=== PATIENT | male | born 1955 | race Caucasian/White ===

== ENCOUNTER → 2018-10-15 | Outpatient (CLI) | payer OTHER ==
--- NOTE | 2018-10-15 14:01 | RAD ---
EXAM DESCRIPTION: Knee,Right Complete CLINICAL HISTORY: 63 years Male, PAIN IN RIGHT KNEE COMPARISON: None. TECHNIQUE: 4 views of the right knee. IMPRESSION: No acute displaced fracture. No dislocation. Severe narrowing of the medial weightbearing joint space with mild underlying subchondral sclerosis along the tibial plateau. Small marginal osteophytes extend off the femoral condyles and tibial plateau. The tibial plateau is intact. Mild patellofemoral arthrosis. Probable small knee joint effusion. Lateral patellar tilt. Mild September 01 edema. No radiopaque foreign body. Electronically signed by: Harish Almaraz MD 10/15/2018 1:59 PM CDT
--- NOTE | 2018-10-15 14:04 | RAD ---
EXAM DESCRIPTION: Pelvis CLINICAL HISTORY: PAIN IN RIGHT HIP COMPARISON: None. IMPRESSION: AP supine view of the pelvis shows no acute fracture, focal bone destruction, or joint dislocation. No advanced arthrosis. Electronically signed by: Jacques Galloway MD 10/15/2018 2:02 PM CDT
== END ==
LOC: RAD 09:27
PROVIDERS: ATTEND Orthopaedic Surgery
DX: M22.2X1 Patellofemoral disorders, right knee (principal); M25.861 Other specified joint disorders, right knee; M25.551 Pain in right hip; R60.0 Localized edema

== ENCOUNTER → 2019-01-25 | Outpatient (CLI) | payer OTHER ==
--- NOTE | 2019-01-25 13:34 | RAD ---
EXAM DESCRIPTION: Chest,2 Views CLINICAL HISTORY: PRESURGICAL CLEARANCE COMPARISON: None FINDINGS: 3 views of the chest. No consolidation, effusion or pneumothorax is present. Usual physiologic wedging of the midthoracic vertebral bodies. Heart size is normal. Flattening of the hemidiaphragms can be seen with good depth of inspiration or COPD. IMPRESSION: Good depth of inspiration versus COPD. No acute radiographic abnormality. Electronically signed by: Collins French MD 01/25/2019 1:32 PM [facility]
== END ==
LOC: LAB.O 09:20
PROVIDERS: ATTEND Nurse Practitioner Family
DX: Z01.810 Encounter for preprocedural cardiovascular examination (principal); R91.8 Other nonspecific abnormal finding of lung field

== ENCOUNTER 2019-02-23 05:39 | Day surgery (SDC) | payer OTHER ==
[2019-02-23] MEDS ORDERED: SODIUM CHL 0.9% 100ML MINI-BAG 100 ML IVPB ONE (08:23)
[2019-02-23] MEDS ORDERED: LACTATED RINGERS 1,000 ML ONE (08:23)
[2019-02-23] MEDS ORDERED: SODIUM CHLORIDE 0.9% 250ML 250 ML ONE (08:23)
[2019-02-23] MEDS ORDERED: ceFAZolin SODIUM 1 GM VIAL ONE (08:24)
[2019-02-23] MEDS ORDERED: VANCOMYCIN HCL INJ 1,000 MG VIAL IVPB ONE (08:24)
[2019-02-23] MEDS ORDERED: TRANEXAMIC ACID 1,000 MG/10 ML VIAL ONE ×2 (08:24→08:25)
[2019-02-23] MEDS ORDERED: SODIUM CHLORIDE 0.9% 100ML 100 ML IVPB ONE (08:31)
[2019-02-23 10:45] VITALS: BP 131/83; TEMP 98.3; O2SAT 97
== END 2019-02-23 10:00 | disposition home or self-care (01) ==
LOC: AMB 05:39
PROVIDERS: ATTEND Orthopaedic Surgery
DX: M17.11 Unilateral primary osteoarthritis, right knee (principal); Z53.9 Procedure and treatment not carried out, unspecified reason

== ENCOUNTER 2019-04-21 05:22 | Inpatient (IN) | payer OTHER ==
[2019-04-21] MEDS ORDERED: SODIUM CHL 0.9% 100ML MINI-BAG 100 ML IVPB ONE (05:43)
[2019-04-21] MEDS ORDERED: LACTATED RINGERS 1,000 ML ONE (05:43)
[2019-04-21] MEDS ORDERED: TRANEXAMIC ACID 1,000 MG/10 ML VIAL ONE ×2 (05:45→05:47)
[2019-04-21] MEDS ORDERED: ceFAZolin SODIUM 1 GM VIAL ONE ×3 (05:45→19:26)
[2019-04-21] MEDS ORDERED: VANCOMYCIN HCL INJ 1,000 MG VIAL IVPB ONE ×4 (05:45→19:25)
[2019-04-21] MEDS ORDERED: SODIUM CHLORIDE 0.9% 100ML 100 ML IVPB ONE (05:46)
[2019-04-21] MEDS ORDERED: SODIUM CHLORIDE 0.9% 250ML 250 ML ONE ×3 (05:48→19:24)
[2019-04-21] MEDS ORDERED: HYDROmorphone HCL INJ 2 MG/ML VIAL ONE (06:25)
[2019-04-21] MEDS ORDERED: TRANEXAMIC ACID 1,000 MG/10 ML VIAL IV ONE (06:25)
[2019-04-21] MEDS ORDERED: MIDAZOLAM INJ 5 MG/5 ML VIAL ONE (06:25)
[2019-04-21] MEDS ORDERED: LACTATED RINGERS 1,000 ML IVS ONE (06:25)
[2019-04-21] MEDS ORDERED: ACETAMINOPHEN IV 1000MG 100 ML ONE (06:25)
[2019-04-21] MEDS ORDERED: KETAMINE HCL 100 MG/ML VIAL ONE (06:25)
[2019-04-21] MEDS ORDERED: DEX 5% W/NACL 0.45% 1000ML 1,000 ML IVS PRN (06:57)
[2019-04-21] MEDS ORDERED: BISACODYL SUPPOSITORY 10 MG PR PRN (06:57)
[2019-04-21] MEDS ORDERED: ALUMINUM & MAGNESIUM HYDROXIDE 30 ML UD PO PRN (06:57)
[2019-04-21] MEDS ORDERED: MORPHINE SULFATE INJ 10 MG/ML VIAL IM PRN (06:57)
[2019-04-21] MEDS ORDERED: ZOLPIDEM TARTRATE 5 MG TAB PO PRN (06:57)
[2019-04-21] MEDS ORDERED: TRANEXAMIC ACID INJ 1,000 MG in SODIUM CHLORIDE 0.9% 100ML 100 ML IVPB ONE (06:57)
[2019-04-21] MEDS ORDERED: SODIUM CHLORIDE 0.9% (FLUSH) 10 ML SYG IV PRN (06:57)
[2019-04-21] MEDS ORDERED: NALOXONE HCL INJ 0.4 MG/ML VIAL IV PRN (06:57)
[2019-04-21] MEDS ORDERED: BENZOCAINE-MENTH LOZ (CEPACOL) 1 EA LOZ MT PRN (06:57)
[2019-04-21] MEDS ORDERED: MAGNESIUM HYDROXIDE 30 ML UD PO PRN (06:57)
[2019-04-21] MEDS ORDERED: PROMETHAZINE HCL INJ 12.5 MG in SODIUM CHLORIDE 0.9% 50ML 50 ML IVPB PRN (06:57)
[2019-04-21] MEDS ORDERED: ACETAMINOPHEN 500 MG TAB PO PRN (06:57)
[2019-04-21] MEDS ORDERED: traMADol HCL 50 MG TAB PO PRN (06:57)
[2019-04-21] MEDS ORDERED: TEMAZEPAM 15 MG CAP PO PRN (06:57)
[2019-04-21] MEDS ORDERED: ACETAMINOPHEN 325 MG TAB PO PRN (06:57)
[2019-04-21] MEDS ORDERED: PROMETHAZINE HCL INJ 25 MG in SODIUM CHLORIDE 0.9% 50ML 50 ML IVPB PRN (06:57)
[2019-04-21] MEDS ORDERED: ONDANSETRON INJ 4 MG/2 ML VIAL IV PRN (06:57)
[2019-04-21] MEDS ORDERED: HYDROcodone 5MG/APAP 325MG 1 EA TAB PO PRN (06:57)
[2019-04-21] MEDS ORDERED: MORPHINE SULFATE INJ 10 MG/ML VIAL IV PRN (06:57)
[2019-04-21] MEDS ORDERED: SODIUM CHLORIDE 0.9% 50 ML VIAL ONE (07:00)
[2019-04-21] MEDS ORDERED: raNITIdine HCL INJ 25 MG/ML VIAL ONE (07:00)
[2019-04-21] MEDS ORDERED: PROPOFOL 200 MG/20 ML VIAL IV ONE (07:00)
[2019-04-21] MEDS ORDERED: MORPHINE PCA 1 MG/ML 100 ML BAG IVPB SCH (07:00)
[2019-04-21] MEDS ORDERED: MAGNESIUM SULFATE INJ 1 GM/2 ML VIAL ONE (07:00)
[2019-04-21] MEDS ORDERED: EPINEPHrine HCL AMP 1 MG/ML AMP ONE (07:00)
[2019-04-21] MEDS ORDERED: PHENYLEPHRINE INJ 1ML 10 MG/ML VIAL ONE (07:00)
[2019-04-21] MEDS ORDERED: IV SET AND CAP CHANGE INJ INJ SCH (07:00)
[2019-04-21] MEDS ORDERED: DEXAMETHASONE INJ 10 MG/ML VIAL ONE (07:00)
[2019-04-21] MEDS: ceFAZolin SODIUM 1 GM VIAL ONE ×3 (07:54→09:04)
[2019-04-21] MEDS: VANCOMYCIN HCL INJ 1,000 MG VIAL IVPB ONE ×2 (07:55→09:04)
[2019-04-21] MEDS: BUPIVACAINE LIPOSOME 13.3 MG/ML VIAL INJ ONE ×2 (07:55→08:32)
[2019-04-21] MEDS: BUPIVACAINE 0.5% 30 ML VIAL INJ ONE ×2 (07:55→08:32)
[2019-04-21] MEDS ORDERED: ELECTROLYTE-A 1,000 ML IVS ONE (08:36)
--- NOTE | 2019-04-21 11:34 | OP ---
DATE OF PROCEDURE: 04/21/19 PREOPERATIVE DIAGNOSIS: 1. Osteoarthritis of the right knee. POSTOPERATIVE DIAGNOSIS: 1. Osteoarthritis of the right knee. PROCEDURE: 1. Total knee arthroplasty. SURGEON: David Kenny MD. FRUIT SHIPPER: Domenic Arora CST, SA-C. ANESTHESIA: General anesthesia. COMPLICATIONS: None. FINDINGS: Severe arthritis of the knee. INDICATION: Deandre has a history of severe knee pain. He has had difficulty with difficulty activities because of worsening of his discomfort. We discussed options and after discussing the risks, benefits and alternatives to operative therapy, the patient has given informed consent. PROCEDURE: The patient was brought to the Operating Room and placed in supine position. General anesthesia was induced and the patient's leg was sterilely prepped and draped. Following prepping and draping, the distal femur was exposed and using an intramedullary guide, the distal femoral cut was made. The appropriate sized cutting block was measured, pinned into place, and the anterior, posterior, and chamfer cuts were made. The ACL was transected and the tibia was subluxed. Both the medial and lateral menisci were removed. An intramedullary guide was used to make the proximal tibial cut. The appropriate sized base plate was placed and a trial polyethylene was placed. The trial femur was placed, the knee was reduced, and the knee was taken through a range of motion. The knee was stable in anterior, posterior, varus and valgus stress. The patella tracked anatomically without evidence of subluxation or dislocation. After trialing, the trial components were removed and the bony surfaces were thoroughly irrigated with saline. Following irrigation, the surfaces were dried and the final components were cemented into place. The excess cement was removed and the remaining cement was allowed to cure. The knee was again taken through a range of motion to confirm stability. The wound was then irrigated with saline and closure was performed using PDS to approximate the arthrotomy followed by closure of the subcutaneous tissues with a combination of running and interrupted Monocryl sutures. Sterile dressing was placed. The patient was awoken from anesthesia and taken to Recovery. COMPONENTS: [place] [employer] knee, size 6 femur, size 6 tibia, 9 mm insert. POSTOPERATIVE PLAN: The patient will be weight-bearing as tolerated on postoperative day 1. #[id number] MTDD
[2019-04-21] MEDS: MAGNESIUM OXIDE 400 MG TAB PO SCH (12:57)
[2019-04-21] MEDS: CELECOXIB 100 MG CAP PO SCH ×2 (12:57→17:22)
--- NOTE | 2019-04-21 14:41 | RAD ---
Right knee 2 views INDICATION: Total knee arthroplasty IMPRESSION: There is lucency possibly small fracture along the lateral margin lateral femoral condyle on the AP film. Recommend follow-up radiographs. Status post total knee arthroplasty. Mild patellofemoral osteophyte formation. Electronically signed by: George Gifford MD 04/21/2019 2:39 PM [facility]
[2019-04-21] MEDS ORDERED: MECLIZINE HCL 12.5 MG TAB PO PRN (15:40)
--- NOTE | 2019-04-21 17:15 | CONS ---
SUPERVISING PHYSICIAN: Austin Mckenzie MD CHIEF COMPLAINT: Right knee pain. HISTORY OF PRESENT ILLNESS: This is a 63 year-old male patient who has a significant history of osteoarthritis of his bilateral knees with bilateral knee pain. He has had his left knee replaced and he has tried conservative measures and failed to gain any relief with his pain and he requested Dr. David Kenny, orthopedic surgeon, for operative intervention and he was admitted to the hospital today for a right total knee arthroplasty. There were no problems intraoperatively. Postoperatively, he initially became fairly diaphoretic with a systolic blood pressure in the 80s. He received a bolus of fluid and cardiac enzymes were run. There were no EKG changes and his cardiac enzymes were negative. Since that time, he is awake and alert. He has had no more problems with diaphoresis. There were never any complaints of chest pain, nausea or vomiting. PAST MEDICAL HISTORY: 1. Hypertension. 2. Hyperlipidemia. 3. Atrial fibrillation. 4. Benign positional vertigo. PAST SURGICAL HISTORY: 1. Left knee replacement. CURRENT MEDICATIONS: 1. Mobic. 2. Xarelto. 3. Lisinopril Hydrochlorothiazide. 4. Metoprol. tartrate. 5. Crestor. ALLERGIES: Penicillin. SOCIAL HISTORY: He lives in [place], he is . He does not smoke tobacco but he does dip snuff. He drinks beer occasionally and he denies any illicit drug use. REVIEW OF SYSTEMS: Negative except as per history of present illness. PHYSICAL EXAMINATION: VITAL SIGNS: Temperature 96.7, heart rate 100, blood pressure 104/56, respirations 16, oxygen saturation 93% on room air. GENERAL: This is a 63 year-old male patient lying in his hospital bed. He is in no acute distress. HEENT: Normocephalic and atraumatic. Pupils are equal and reactive. Oropharynx is clear. NECK: Supple without mass. CHEST: Essentially clear to auscultation bilaterally. HEART: Regular rate and rhythm. ABDOMEN: Soft, nondistended, non-tender. Bowel sounds are positive. EXTREMITIES: His right leg is in the CPM machine. He has an Hansel bandage that is try and intact. His bilateral pedal pulses are palpable +2. NEUROLOGIC: He is awake, alert, and oriented x3. Cranial nerves II through XII are grossly intact as tested. LABORATORY: CBC is unremarkable. Electrolytes are basically within normal limits. Blood sugar is slightly high at 143. Cardiac enzymes are negative. Urinalysis is unremarkable. Urine drug screen is negative. X-rays are as per the history of present illness. IMPRESSION: 1. Osteoarthritis of the right knee status post right total knee arthroplasty performed by Dr. David Kenny, orthopedic surgeon, postoperative #0. 2. Hypertension. 3. Hyperlipidemia. 4. Chronic atrial fibrillation on Xarelto. 5. Benign positional vertigo. PLAN: We will continue present supportive care. Orthopedic issues will be per Dr. David Kenny, orthopedic surgeon. He will begin physical therapy for strengthening and conditioning tomorrow. I have restarted his home medications with the exception of his Mobic and his Xarelto. I have ordered Meclizine for his vertigo. I have encouraged good pulmonary hygiene. We will continue to monitor him closely and follow as needed. #[id number] [facility]
[2019-04-21] MEDS ORDERED: SODIUM CHL 0.9% 50ML MIN-BAG+ 50 ML IVPB ONE ×2 (17:16→19:25)
[2019-04-21] MEDS: ceFAZolin SODIUM 2 GM in SODIUM CHL 0.9% 50ML MIN-BAG+ 50 ML IVPB SCH (17:22)
[2019-04-21] MEDS: VANCOMYCIN HCL INJ 1,000 MG in SODIUM CHLORIDE 0.9% 250ML 250 ML IVPB SCH (17:53)
[2019-04-21] MEDS ORDERED: ENOXAPARIN SODIUM 30 MG/0.3 ML SYG SUBCU ONE (19:25)
[2019-04-21] MEDS: METOPROLOL TARTRATE 50 MG TAB PO SCH (20:14)
[2019-04-21] MEDS: DOCUSATE CALCIUM 240 MG CAP PO SCH (20:15)
--- NOTE | 2019-04-21 22:28 | RAD ---
EXAM DESCRIPTION: Fluoroscopy Up to 1Hr CLINICAL HISTORY: 63 years Male, RIGHT TKA COMPARISON: None. IMPRESSION: Multiple intraoperative fluoroscopic images saved for the benefit of the surgeon. Total right knee arthroplasty. Please see procedure report for full details. Fluoroscopy time: 6.2 seconds Fluoroscopic images: 1 Total dose: 1.02 mGy Electronically signed by: Harish Almaraz MD 04/21/2019 10:27 PM [facility]
[2019-04-21] MEDS: ENOXAPARIN SODIUM 30 MG/0.3 ML SYG SUBCU SCH (22:55)
[2019-04-22] MEDS: ceFAZolin SODIUM 2 GM in SODIUM CHL 0.9% 50ML MIN-BAG+ 50 ML IVPB SCH ×2 (00:21→08:25)
[2019-04-22] MEDS: VANCOMYCIN HCL INJ 1,000 MG in SODIUM CHLORIDE 0.9% 250ML 250 ML IVPB SCH (05:37)
[2019-04-22] MEDS ORDERED: SODIUM CHL 0.9% 50ML MIN-BAG+ 50 ML IVPB ONE (08:00)
[2019-04-22] MEDS ORDERED: ceFAZolin SODIUM 1 GM VIAL ONE (08:03)
--- NOTE | 2019-04-22 08:18 | PN ---
DATE: 04/22/19 SUBJECTIVE: Deandre is doing really well and says his pain is well controlled. OBJECTIVE: Afebrile. Vital signs stable. Dressing is clean, dry and intact. ASSESSMENT: Status post total knee arthroplasty. PLAN: He will begin weightbearing as tolerated today. #[id number] MTDD
[2019-04-22] MEDS: hydroCHLOROthiazide 25 MG TAB PO SCH (08:19)
[2019-04-22] MEDS: MAGNESIUM OXIDE 400 MG TAB PO SCH (08:19)
[2019-04-22] MEDS: METOPROLOL TARTRATE 50 MG TAB PO SCH ×2 (08:19→20:37)
[2019-04-22] MEDS: HYDROcodone 10MG/APAP 325MG 1 EA TAB PO PRN ×2 (08:19→20:36)
[2019-04-22] MEDS: CELECOXIB 100 MG CAP PO SCH ×2 (08:19→17:15)
[2019-04-22] MEDS: CYCLOBENZAPRINE HCL 10 MG TAB PO PRN ×2 (08:20→17:15)
[2019-04-22] MEDS: LISINOPRIL 10 MG TAB PO SCH (08:20)
[2019-04-22] MEDS ORDERED: NON-FORMULARY MEDICATION 1 EA MIS (Lisinopril & Hydrochlorothiazi [Lisinopril/Hydrochlorot PO SCH (09:00)
[2019-04-22] MEDS ORDERED: NON-FORMULARY MEDICATION 1 EA MIS (Rosuvastatin Calcium [Crestor] 10 MG) PO SCH (09:00)
[2019-04-22] MEDS: ENOXAPARIN SODIUM 30 MG/0.3 ML SYG SUBCU SCH ×2 (12:18→23:01)
[2019-04-22] MEDS ORDERED: diphenhydrAMINE HCL 50 MG/ML VIAL IV PRN (16:38)
[2019-04-22] MEDS: DOCUSATE CALCIUM 240 MG CAP PO SCH (20:37)
[2019-04-22] MEDS ORDERED: SIMVASTATIN 20 MG TAB PO SCH (21:00)
[2019-04-23 02:47] VITALS: O2SAT 98
--- NOTE | 2019-04-23 07:54 | PN ---
SUPERVISING PHYSICIAN: Austin Mckenzie MD DATE: 04/22/19 SUBJECTIVE: The patient is lying in bed asleep. He awakens easily. He said his leg has been having a few spasms in it, but he is not in much pain. He denies any chest pain, shortness of breath, nausea or vomiting. OBJECTIVE: VITAL SIGNS: Temperature 98.1. Heart rate 85. Blood pressure 118/73. Respiratory rate 18. O2 saturation 98% on room air. RESPIRATORY: Essentially clear to auscultation bilaterally. CARDIAC: Regular rate and rhythm. GASTROINTESTINAL: Abdomen is soft, nondistended, nontender. Bowel sounds are positive. EXTREMITIES: Bilateral pedal pulses are palpable at +2. His right knee has a dressing that is dry and intact. NEUROLOGIC: Awake, alert and oriented times three. LABORATORY: Hemoglobin 12.1, hematocrit 36.8. All other labs and films have been reviewed via the EMR. ASSESSMENT: 1. Osteoarthritis of the right knee status post right total knee arthroplasty performed by Dr. David Kenny, orthopedic surgeon, postoperative #1. 2. Hypertension. 3. Hyperlipidemia. 4. Chronic atrial fibrillation on Xarelto. 5. Benign positional vertigo. PLAN: We will continue present supportive care. Orthopedic issues will be per Dr. David Kenny, orthopedic surgeon. He will continue with physical therapy for strengthening and conditioning. I have encouraged good pulmonary hygiene. Discharge planning is underway and he will use physical therapy from [facility]. Hopefully he will be discharged in the next 1 to 2 days. We will continue to monitor the patient closely and follow as needed. #[id number] [facility]
[2019-04-23] MEDS ORDERED: SODIUM CHLORIDE 0.9% (FLUSH) 10 ML SYG IV SCH (09:00)
[2019-04-23] MEDS: LISINOPRIL 10 MG TAB PO SCH (09:36)
[2019-04-23] MEDS: hydroCHLOROthiazide 25 MG TAB PO SCH (09:36)
[2019-04-23] MEDS: CYCLOBENZAPRINE HCL 10 MG TAB PO PRN (09:36)
[2019-04-23] MEDS: CELECOXIB 100 MG CAP PO SCH (09:36)
[2019-04-23] MEDS: METOPROLOL TARTRATE 50 MG TAB PO SCH (09:36)
[2019-04-23] MEDS: MAGNESIUM OXIDE 400 MG TAB PO SCH (09:36)
[2019-04-23] MEDS: HYDROcodone 10MG/APAP 325MG 1 EA TAB PO PRN (09:37)
[2019-04-23] MEDS: ENOXAPARIN SODIUM 30 MG/0.3 ML SYG SUBCU SCH (12:02)
[2019-04-23 17:11] VITALS: BP 121/72; TEMP 98
[2019-04-24] MEDS ORDERED: MAGNESIUM HYDROXIDE 30 ML UD PO ONE (21:00)
[2019-04-24] MEDS ORDERED: BISACODYL SUPPOSITORY 10 MG PR ONE (21:00)
--- NOTE | 2019-04-28 09:41 | DS ---
SUPERVISING PHYSICIAN: Austin Mckenzie MD DISCHARGE DIAGNOSIS: 1. Osteoarthritis of the right knee status post right total knee arthroplasty performed by Dr. David Kenny, orthopedic surgeon, postoperative #2. 2. Hypertension. 3. Hyperlipidemia. 4. Chronic atrial fibrillation on Xarelto. 5. Benign positional vertigo. HISTORY OF PRESENT ILLNESS: This is a 63 year-old male patient who was admitted to the hospital on the day of his procedure. He has had a long history of osteoarthritis of his bilateral knees. He has had his left knee replaced several years ago. He has tried conservative measures and failed to gain any relief with his right knee pain and he requested Dr. David Kenny, orthopedic surgeon, for operative intervention. He was admitted for the operative procedure and there were no problems intraoperatively. Postoperatively, he initially was diaphoretic, but after giving him some fluids and getting the pain under control, there were no further problems. A set of cardiac enzymes were run and were negative. There were no EKG changes. Since that time, he has had no issues. He has met his physical therapy goals. His orthopedic issues were addressed by Dr. Kenny. He is ready to be discharged home in stable condition. LABORATORY: Postoperative hemoglobin 12.1, hematocrit 36.8. Cardiac enzymes were all negative. Urine drug screen was negative. DISCHARGE PLAN: The patient will be discharged home in stable condition. He is to resume his previous diet. His activity will be as per physical therapy. He will go to the [facility] outpatient physical therapy department. He has a followup appointment with Dr. Kenny on 05/07/19 at 10:30 AM. He is on Xarelto routinely and he is to continue that for his anticoagulant therapy. He is to resume his previous dosage. He is to resume his previous medications. In addition to his routine medications, he will have Flexeril as well as some hydrocodone. He is to return to the hospital or followup with Dr. Kenny for any problems or complications. DISCHARGE MEDICATIONS: 1. Crestor. 2. Xarelto. 3. Lopressor. 4. Mobic. 5. Lisinopril/hydrochlorothiazide. 6. Cyclobenzaprine. 7. Hydrocodone. #[id number] MTDD
== END 2019-04-23 15:00 | disposition home or self-care (01) | DRG 470 ==
LOC: AMB 05:22 → MS 10:37
PROVIDERS: ADMIT Orthopaedic Surgery; ATTEND Nurse Practitioner Acute Care
PROC: 3E0T3BZ Introduction of Anesthetic Agent into Peripheral Nerves and Plexi, Percutaneous Approach (ICD-10-PCS; 2019-04-21)
PROC: 3E0T33Z Introduction of Anti-inflammatory into Peripheral Nerves and Plexi, Percutaneous Approach (ICD-10-PCS; 2019-04-21)
PROC: 0SRC0J9 Replacement of Right Knee Joint with Synthetic Substitute, Cemented, Open Approach (ICD-10-PCS; principal; 2019-04-21 06:53)
DX: M17.11 Unilateral primary osteoarthritis, right knee (principal); I48.20 Chronic atrial fibrillation, unspecified; Z68.42 Body mass index [BMI] 45.0-49.9, adult; I95.9 Hypotension, unspecified; I10 Essential (primary) hypertension; E78.5 Hyperlipidemia, unspecified; H81.10 Benign paroxysmal vertigo, unspecified ear; F17.290 Nicotine dependence, other tobacco product, uncomplicated; E66.9 Obesity, unspecified; Z96.652 Presence of left artificial knee joint; Z79.1 Long term (current) use of non-steroidal anti-inflammatories (NSAID); Z79.01 Long term (current) use of anticoagulants; Z79.899 Other long term (current) drug therapy; Z88.0 Allergy status to penicillin; M81.0 Age-related osteoporosis without current pathological fracture